=== PATIENT | male | born 1980 ===

== ENCOUNTER 2018-05-19 22:04 | Emergency (ER) | payer OTHER ==
[~2018-05-19] VITALS: Ht 193 cm; Wt 127.0 kg
[2018-05-19] MEDS ORDERED: CEPHALEXIN 500MG CAPSULES (22:54)
[2018-05-19] MEDS ORDERED: OLOPATADINE 0.2% (22:54)
--- NOTE | 2018-05-19 23:42 | NUR ---
Patient discharged to home in stable conditon. Written and verbal after care instructions given. Patient verbalizes understanding of instructions. Walked of ER with steady gait
== END 2018-05-19 23:46 | disposition home or self-care (01) ==
LOC: ER 22:10
DX: H00.015 Hordeolum externum left lower eyelid (principal)
CPT/HCPCS: A4663